=== PATIENT | female | born 1955 | race Caucasian/White ===

== ENCOUNTER 2024-11-11 10:03 | Emergency (ER) | payer MEDICARE, OTHER ==
[~2024-11-11] VITALS: Ht 165.1 cm; Wt 60.0 kg
[2024-11-11 10:07] VITALS: BP 117/62; PULSE 65; TEMP 97.2; O2SAT 100
--- NOTE | 2024-11-11 10:32 | Physician Documentation ---
History of Present Illness ~ Chief Complaint: Flank Pain Stated Complaint: BLOOD IN URINE Time Seen by MD: 10:32 HPI This is a 69-year-old female who presents to the emergency department for ongoing issues with right low back and flank pain. She reports that three months ago, she had a CT scan done at [facility] that showed some small kidney stones but was otherwise normal. For the last week, she has had dark blood in her urine. No dysuria. No chills or fever, chest pain or shortness of breath. She attempted to go see her primary care, and was directed here for evaluation. She denies other medical problems except for minor seizures for which she takes Lamictal. Medication Reconciliation Allergies: Coded Allergies: Penicillins (Verified Allergy, Unknown, 11/11/24) Scheduled Nitrofurantoin Monohyd/M-Cryst (Macrobid 100 mg Capsule), 1 CAP PO Q12H Review of Systems ROS As stated above in the HPI, otherwise all systems are reviewed and negative. Physical Exam Vital Signs: Temperature: 97.2, Source: Temporal, Heart Rate: 65, Respiratory Rate: 15, BP: 117/62, Pulse Oximetry: 100, Weight: 60.000 Physical Exam General: Alert, no apparent distress. Neck: Full range of motion. Respiratory: Lungs clear, no respiratory distress. Chest: No accessory muscle use. Cardiovascular: Regular rate and rhythm, no murmurs. Gastrointestinal: Soft, nontender, nondistended. Bowels sounds present. No CVA tenderness. Extremities: Normal range of motion, no deformity. Neurologic: Oriented x4. Psychiatric: Normal mood and affect. Skin: Normal color, warm and dry. No edema, no ecchymosis. Progress Progress Note 1055: [employer] reports tiny non-obstructing stones but otherwise normal exam. Results/Orders Results/Orders Orders - DOM MKCEON [employer] EQUIPMENT REPAIRER Ultrasound Kidney Non Vasc (11/11/24 10:33) Completed Orders - DOM MCKEON [employer] EQUIPMENT REPAIRER Ultrasound Kidney Non Vasc (11/11/24 10:33) Vital Signs 11/11/24 11/11/24 11/11/24 11/11/24 10:07 11:10 11:13 11:23 Temp 97.2 Pulse 65 Resp 15 16 16 16 B/P (MAP) 117/62 Pulse Ox 100 Laboratory Tests Test 11/11/24 10:32 9/18/25 10:33 White Blood Count 3.9 L Red Blood Count 4.59 Hemoglobin 13.9 Hematocrit 41.7 Mean Corpuscular Volume 91.0 Mean Corpuscular Hemoglobin 30.2 Mean Corpuscular Hemoglobin Concent 33.2 Red Cell Distribution Width 13.2 Platelet Count 268 Mean Platelet Volume 7.1 L Neutrophils (%) (Auto) 54.7 Lymphocytes (%) (Auto) 29.4 Monocytes (%) (Auto) 10.1 Eosinophils (%) (Auto) 4.5 Basophils (%) (Auto) 1.3 H Neutrophils # (Auto) 2.1 Lymphocytes # (Auto) 1.2 Monocytes # (Auto) 0.4 Eosinophils # (Auto) 0.2 Basophils # (Auto) 0.1 CBC Comment Sodium Level 143 Potassium Level 4.0 Chloride Level 106 Carbon Dioxide Level 29.8 Anion Gap 7 L Blood Urea Nitrogen 12 Creatinine 0.92 H Estimated GFR/1.73 m2 61 BUN/Creatinine Ratio 13.0 Glucose Level 89 Calcium Level 9.5 Total Bilirubin 0.6 Aspartate Amino Transf (AST/SGOT) 21 Alanine Aminotransferase (ALT/SGPT) 23 Alkaline Phosphatase 89 Total Protein 7.4 Albumin 3.9 Globulin 3.5 Albumin/Globulin Ratio 1.1 Lipase 57 Chemistry Comments Urine Specimen Description Cln catch midstream Urine Color Yellow Urine Clarity Slightly cloudy Urine pH 6.0 Urine Specific Chalmers 1.020 Urine Protein Negative Urine Glucose (UA) Negative Urine Ketones Negative Urine Occult Blood Large H Urine Nitrite Negative Urine Bilirubin Negative Urine Urobilinogen 0.2 Urine Leukocyte Esterase Trace H Urine RBC Tntc Urine WBC 5-10 H Urine Squamous Epithelial Cells Few Urine Bacteria Few Urine Mucus Few Urine Culture Indicated Indicated Volume Urine Centrifuged 10 ml Urine Comment EKG/XRAY/CT/US/VASC/MRI Ultrasound : [facility] [address], [place], [facility] [id number] ULTRASOUND Patient: ROSA TOSCANO Medical Record: [id number] [facility] : 1955, Age: 69 Sex: Female Location: ER Patient Status: [facility] ER Service Date/Time: 11/11/24/ 1033 Ordering Physician: DOM MCKEON NP Exam: ULTRASOUND KIDNEY NON VASC INDICATION: hematuria TECHNIQUE: Multiple real-time sonographic images of the kidneys and bladder were obtained. COMPARISON: None FINDINGS: RIGHT kidney measures 9.6 cm in length. Right lower pole cyst measures 2.0 cm. Possible nonobstructing stone in the right lower pole measures 0.6 cm. No hydronephrosis. LEFT kidney measures 10.2 cm in length. No hydronephrosis. No large intraluminal masses are seen in the bladder. IMPRESSION: Possible nonobstructing stone in the right lower pole measures 0.6 cm. Electronically Signed by:MARQUES SHARPE MD Date & Time: 11/11/24 111 Dictated by: MARQUES SHARPE MD Dictation date and time: 11/11/24 111 Primary Care Provider: NO PRIMARY CARE PROVIDER cc: DOM MCKEON NP ~ Medical Decision Making Additional Comment This is a well-appearing 69-year-old female who primarily presented today due to bloody urine and right-sided flank pain. She denied chills or fever, body aches, any other significant symptoms. She reported a recent CT of the abdomen and pelvis done three months ago that showed nonobstructing renal stones. Renal ultrasound obtained today, showing right sided non-obstructing renal stone. Urinalysis does show evidence of a urinary tract infection. Labs otherwise unremarkable including no evidence of leukocytosis or COTY. The patient will be discharged on antibiotics and instructed to follow up with her primary care provider. She is to return if worse at any time or not improved in two days. Departure Time of Disposition: 11:16 Disposition: 01 HOME / SELF CARE / HOMELESS Impression: Primary Impression: Acute urinary tract infection Additional Impressions: Hemorrhagic cystitis Calculus of kidney Condition: Stable Discharge Instructions: Hemorrhagic Cystitis, Urinary Tract Infection, Adult, Kidney Stones Additional Instructions: The kidney ultrasound done today again showed evidence of kidney stone that is not causing an obstruction in your ureter. Your urinalysis does appear to show evidence of infection. You will be treated with antibiotics. Drink plenty of fluids, follow up with your primary care provider, please return if worse at any time. This would be the case especially if you develop fever over 101, symptoms of flu-like illness, or any other concerns that you were getting markedly worse. Referrals: NO PRIMARY CARE PROVIDER (PCP) Prescriptions Nitrofurantoin Monohyd/M-Cryst (Macrobid 100 mg Capsule) 100 Mg Capsule 1 CAP PO Q12H for 5 Days, #10 CAP 0 Refills Prov: DOM MCKEON NP 11/11/24 Education Educated: Patient Educated regarding: diagnosis, treatment, prognosis, need for follow up Signature Scribe Signature: x Attestation: The note accurately reflects work and decisions made by me.Dom Castellanos NP 11/11/24 10:32 DOM MCKEON NP Nov 11, 2024 10:32
[2024-11-11 10:41] LABS: MEAN PLATELET VOLUME 7.1 FL (7.4-10.4); RED CELL DISTRIBUTION WIDTH 13.2 % (11.5-14.5)
[2024-11-11 10:47] LABS: LEUKOCYTE ESTERASE ,URINE TRACE (Neg); NITRITES, URINE NEGATIVE (Neg); OCCULT BLOOD,URINE LARGE (Neg)
[2024-11-11 10:49] LABS: UA COLLECTION TYPE CLN CATCH MIDSTREAM
[2024-11-11 10:56] LABS: SQUAMOUS EPITHELIAL CELL,UR FEW /LPF (FEW)
[2024-11-11 10:57] LABS: MUCUS STRANDS FEW /LPF (Neg)
[2024-11-11 11:01] LABS: CREATININE 0.92 MG/DL (0.40-0.90); TOTAL CARBON DIOXIDE 29.8 MMOL/L (24-32); eCRCL 53 ML/MIN; eGFR 61 ML/MIN
--- NOTE | 2024-11-11 11:17 | RADIOLOGY REPORT ---
INDICATION: hematuria TECHNIQUE: Multiple real-time sonographic images of the kidneys and bladder were obtained. COMPARISON: None FINDINGS: RIGHT kidney measures 9.6 cm in length. Right lower pole cyst measures 2.0 cm. Possible nonobstructing stone in the right lower pole measures 0.6 cm. No hydronephrosis. LEFT kidney measures 10.2 cm in length. No hydronephrosis. No large intraluminal masses are seen in the bladder. IMPRESSION: Possible nonobstructing stone in the right lower pole measures 0.6 cm.
[2024-11-11] MEDS ORDERED: NITR100C6 PO (11:18)
[2024-11-11 11:23] VITALS: RESP 16
== END 2024-11-11 11:28 | disposition home or self-care (01) ==
LOC: ER 10:05
DX: N30.90 Cystitis, unspecified without hematuria (principal); N20.0 Calculus of kidney; M54.50 Low back pain, unspecified; Z88.0 Allergy status to penicillin
CPT/HCPCS: 36415; 76770; 80053; 81001; 83690; 85025; 87088; 99284